=== PATIENT | female | born 1940 | race Caucasian/White ===

== ENCOUNTER 2017-01-12 06:16 | Day surgery (SDC) | payer MEDICARE ==
[2017-01-09 11:32] VITALS: BMI 28.3
[2017-01-12] MEDS ORDERED: ceFAZolin IV 2 gm in Dextrose 1 GM/50 ML BAG IVPB ONE (07:24)
[2017-01-12] MEDS ORDERED: Bupivacaine HCl 0.25% PF (10 ml) Inj ONE (07:24)
[2017-01-12] MEDS ORDERED: Lactated Ringer's 1,000 ML IV ONE (07:55)
[2017-01-12] MEDS ORDERED: Midazolam 2 MG/2 ML VIAL ONE (08:10)
[2017-01-12] MEDS ORDERED: Propofol 10 mg/ml Inj (20 ML) ONE (08:11)
[2017-01-12] MEDS ORDERED: HYDROmorphone 0.5 mg/0.5 ml ISec IVP PRN (09:14)
--- NOTE | 2017-01-12 09:15 | PCM.SURG1 ---
Surgeon's Initial Post Op Note - Surgeon's Notes Surgeon: Dagoberto Crisis Counselor: Kika PGY2 Type of Anesthesia: General LMA Pre-Operative Diagnosis: Lipomas LUE Operative Findings: 8 Lipomas LUE Post-Operative Diagnosis: same Operation Performed: excision of lipomas Specimen/Specimens Removed: lipomas x 8 Estimated Blood Loss: EBL {In ML}: 10 Blood Products Given: N/A Drains Used: No Drains Post-Op Condition: Good Date of Surgery/Procedure: 01/12/17 Time of Surgery/Procedure: 09:15
[2017-01-12 10:56] VITALS: RESP 15
[2017-01-12 14:14] VITALS: BP 175/66; PULSE 66; TEMP 97.3; O2SAT 98
== END 2017-01-12 11:51 | disposition home or self-care (01) ==
LOC: MERGE 06:16 → C.SDS 06:16
PROVIDERS: ATTEND Surgery Vascular Surgery
DX: D17.22 Benign lipomatous neoplasm of skin and subcutaneous tissue of left arm (principal)
CPT/HCPCS: 11404; 82948; 88304; J0690; J1170; J2001; J2250; J2704; J3010; J7120